=== PATIENT | female | born 1980 | race Caucasian/White ===

== ENCOUNTER 2024-10-16 13:02 | Emergency (ER) | payer OTHER ==
[~2024-10-16] VITALS: Ht 165.1 cm; Wt 115.7 kg
[~2024-10-16 13:02] MED LIST: ACET325; ACET325 PO; ACET500; ACET500 PO; ALBU90OI INH; ARIP10 PO; ASPI325; Alprazolam0.5 MG PO; BUPR150ER PO; BURN RELIEF W-127 GM TP; CEPH500 PO; CHLO25B PO; CHOL10002 PO; CIPR500 PO; CLIN300 PO; CLON.5; CRUTCH4 USE; CYCL10 PO; Crutch1 EACH MISC; Cymbalta20 MG PO; DIAZ5 PO; DOXY100 PO; DULO30 PO; FAMO20 PO; FAMO40 PO; FISH1000 PO; FLUR.03SO OD; FLUR100 PO; FLURBIPROFEN PO; FLUV50 PO; Flomax0.4 MG PO; GABA400 PO; GLIP2.5ER PO; HYDACE5 PO; HYDACE5325 PO; HYDR1TAB94 PO; HYOS.125 SL; IBUHYD PO; IBUP200; IBUP600 PO; IBUP800; IBUP800 PO; Indomethacin50 MG PO; KETO10 PO; LABE100 PO; LAVAP17G; LEVSOD200 PO; LISI5 PO; LORA2 PO; MEDR5 PO; METF500 PO; METO10 PO; MIRT15 PO; MIRTAZIPINE PO; MULVITMINE; MULVITMINE PO; Metformin HCl500 M1 PO; NAPR375; NAPR500 PO; NAPR550 PO; NITR100CA PO; NORT10 PO; NORT25 PO; Neurontin 100100 MG PO; OLAN2.5 PO; ONDA4 PO; ONDA4ODT MM; OXYACE5T PO; PERM5TC TOP; PREG75 PO; PROC10 PO; PROG100; PROM25 PO; Percocet 5-3251 EACH PO; QUET25 PO; RXCYCL10 PO; RXERYTOPTH OP; RXHYDACE PO; RXHYOS.125 PO; RXLORA1 PO; RXNAPNA550 PO; RXONDA4ODT MM; RXOXYACE PO; RXTRAM50 PO; SERT100 PO; SERT50 PO; SULTRIDS PO; SYNTHROID0.2 MG PO; Sprintec1 EACH PO; TAMS.4ER; TOPI25 PO; TRAM50; TRAM50 PO; Tizanidine HCl2 MG; Toradol10 MG PO; ULTRAM ER; ZIPR40 PO; ZIPR60 PO; Zofran Odt4 MG SL; Zofran Odt8 MG SL; [UNRECOGNIZED DRUG - CODE]; [UNRECOGNIZED DRUG - OTHER]; [UNRECOGNIZED DRUG - OTHER] TP; [UNRECOGNIZED DRUG - REMARK]
[2024-10-16 13:16] VITALS: BP 130/88
== END 2024-10-16 15:12 | disposition home or self-care (01) ==
LOC: ER 13:02
DX: R45.851 Suicidal ideations (principal); F10.90 Alcohol use, unspecified, uncomplicated; I10 Essential (primary) hypertension; E11.40 Type 2 diabetes mellitus with diabetic neuropathy, unspecified; F43.10 Post-traumatic stress disorder, unspecified; Z87.891 Personal history of nicotine dependence; Z79.899 Other long term (current) drug therapy; Z79.84 Long term (current) use of oral hypoglycemic drugs; Z88.0 Allergy status to penicillin; Z88.1 Allergy status to other antibiotic agents; Z88.8 Allergy status to other drugs, medicaments and biological substances
CPT/HCPCS: 99284

== ENCOUNTER → 2024-12-03 | Outpatient (CLI) | payer OTHER | LOC: LAB 17:26 → LAB SHORT 17:26 | DX: R30.0 Dysuria (principal) | CPT/HCPCS: 87086 ==

== ENCOUNTER 2025-02-02 10:00 | Emergency (ER) | payer OTHER ==
[~2025-02-02] VITALS: Ht 165.1 cm; Wt 81.7 kg
[2025-02-02 10:51] VITALS: BP 133/78
[2025-02-02] MEDS ORDERED: Ketorolac Tromethamine 30mg Vial IM ONE (10:55)
[2025-02-02] MEDS ORDERED: Lidocaine/Tetracaine/Epinephr 3 ML GEL SYRINGE TOP ONE (10:55)
[2025-02-02] MEDS ORDERED: Mupirocin22 GM TOP (13:08)
== END 2025-02-02 13:10 | disposition home or self-care (01) ==
LOC: ER 10:00
DX: S80.211A Abrasion, right knee, initial encounter (principal); S80.811A Abrasion, right lower leg, initial encounter; I10 Essential (primary) hypertension; F43.10 Post-traumatic stress disorder, unspecified; E11.40 Type 2 diabetes mellitus with diabetic neuropathy, unspecified; W01.0XXA Fall on same level from slipping, tripping and stumbling without subsequent striking against object, initial encounter; Z87.891 Personal history of nicotine dependence; Z79.84 Long term (current) use of oral hypoglycemic drugs; Z79.899 Other long term (current) drug therapy; Z88.0 Allergy status to penicillin; Z88.1 Allergy status to other antibiotic agents; Z88.8 Allergy status to other drugs, medicaments and biological substances
CPT/HCPCS: 96372; 99282-25; J1885

== ENCOUNTER 2025-05-08 12:29 | Emergency (ER) | payer OTHER ==
[~2025-05-08] VITALS: Ht 165.1 cm; Wt 117.9 kg
[~2025-05-08 12:29] MED LIST changes: +Mupirocin22 GM TOP
[2025-05-08 12:43] VITALS: BP 136/67
[2025-05-08] MEDS ORDERED: Ketorolac Tromethamine 15mg Vial IV ONE (12:45)
[2025-05-08] MEDS ORDERED: NS 1,000 ML IV SCH (12:45)
[2025-05-08 13:26] LABS: BASOPHILS ABSOLUTE AUTO 0.04 K/mm3 (0.00-0.23); BASOPHILS PERCENT AUTO 0 % (0-2); EOSINOPHILS ABSOLUTE AUTO 0.00 K/mm3 (0.00-0.68); EOSINOPHILS PERCENT AUTO 0 % (0-6); Hematocrit 41.2 % (33.0-51.0); Hemoglobin 13.8 g/dL (11.5-16.0); IMMATURE GRAN ABSOLUTE AUTO 0.06 K/mm3 (0.00-0.10); IMMATURE GRAN PERCENT AUTO 1 % (0-1); LYMPHOCYTES ABSOLUTE AUTO 0.89 K/mm3 (0.84-5.20); LYMPHOCYTES PERCENT AUTO 8 % (21-46); MONOCYTES ABSOLUTE AUTO 0.66 K/mm3 (0.16-1.47); MONOCYTES PERCENT AUTO 6 % (4-13); Mean Corpuscular HGB Conc 33.5 g/dL (31.5-36.5); Mean Corpuscular Volume 82 fL (80-100); NEUTROPHILS ABSOLUTE AUTO 9.10 K/mm3 (1.96-9.15); NEUTROPHILS PERCENT AUTO 85 % (41-73); NRBC ABSOLUTE 0.00 K/mm3 (0.00-0.02); NRBC Auto 0.0 /100 WBC (0.0-0.2); Platelet Count 299 K/mm3 (150-400); RDW Coefficient Variation 13.8 % (11.7-14.2); RDW Standard Deviation 41.0 fL (35.1-46.3)
[2025-05-08 13:37] LABS: Influenza A, PCR NEGATIVE (NEGATIVE); Influenza B, PCR NEGATIVE (NEGATIVE); Resp Syncytial Virus, PCR NEGATIVE (NEGATIVE); SARS-Cov-2 (COVID-19) PCR, MMC NEGATIVE (NEGATIVE)
[2025-05-08 13:44] LABS: Alanine Aminotransfer (ALT/SGP 41.0 U/L (12-78); Albumin, Blood 2.9 g/dL (3.4-5.0); Albumin/Globulin Ratio 0.7 (0.8-1.8); Anion Gap 11.0 mmol/L (3-11); Aspartate Aminotrans (AST/SGOT 19.0 U/L (12-37); Bilirubin, Total 0.6 mg/dL (0.1-1.0); Blood Urea Nitrogen 7.0 mg/dL (8-24); CO2, Blood 23.0 mmol/L (21-32); Calcium, Blood 8.5 mg/dL (8.5-10.1); Chloride, Blood 99.0 mmol/L (98-108); Creatinine, Blood 0.52 mg/dL (0.40-1.00); Globulin, Blood 4.1 g/dL (2.2-4.0); Glucose, Blood 163.0 mg/dL (70-99); Potassium, Blood 4.0 mmol/L (3.5-5.5); Sodium, Blood 129.0 mmol/L (136-145); Total Protein, Blood 7.0 g/dL (6.4-8.2)
[2025-05-08] MEDS ORDERED: AMOX500 PO (15:03)
[2025-05-08] MEDS ORDERED: ONDA4ODT MM (15:03)
== END 2025-05-08 14:13 | disposition left against medical advice (07) ==
LOC: ER 12:29
PROVIDERS: Physician Assistant
DX: J18.9 Pneumonia, unspecified organism (principal); I10 Essential (primary) hypertension; E11.40 Type 2 diabetes mellitus with diabetic neuropathy, unspecified; F43.10 Post-traumatic stress disorder, unspecified; Z87.891 Personal history of nicotine dependence; Z79.84 Long term (current) use of oral hypoglycemic drugs; Z79.899 Other long term (current) drug therapy; Z88.0 Allergy status to penicillin; Z88.1 Allergy status to other antibiotic agents; Z88.8 Allergy status to other drugs, medicaments and biological substances
CPT/HCPCS: 71046; 80053; 85025; 87637; 93005; 93010; 99283-25

== ENCOUNTER 2025-05-10 08:39 | Emergency (ER) | payer OTHER ==
[~2025-05-10] VITALS: Ht 167.6 cm; Wt 117.9 kg
[~2025-05-10 08:39] MED LIST changes: +AMOX500 PO
[2025-05-10] MEDS ORDERED: BUPR150ER PO (09:21)
[2025-05-10] MEDS ORDERED: INSULIN GL100 UNIT/2 SC (09:21)
[2025-05-10] MEDS ORDERED: INSULIN AS100 UNIT/8 (09:22)
[2025-05-10] MEDS ORDERED: Ketorolac Tromethamine 15mg Vial IV ONE (09:40)
[2025-05-10] MEDS ORDERED: Ondansetron HCl 2 MG / ML 2ML Vial IV ONE (09:40)
[2025-05-10] MEDS ORDERED: NS 1,000 ML IV SCH (09:40)
[2025-05-10 10:52] LABS: Source, Urine Clean Catch
[2025-05-10 10:55] LABS: BASOPHILS ABSOLUTE AUTO 0.03 K/mm3 (0.00-0.23); BASOPHILS PERCENT AUTO 0 % (0-2); EOSINOPHILS ABSOLUTE AUTO 0.01 K/mm3 (0.00-0.68); EOSINOPHILS PERCENT AUTO 0 % (0-6); Hematocrit 40.5 % (33.0-51.0); Hemoglobin 13.7 g/dL (11.5-16.0); IMMATURE GRAN ABSOLUTE AUTO 0.04 K/mm3 (0.00-0.10); IMMATURE GRAN PERCENT AUTO 1 % (0-1); LYMPHOCYTES ABSOLUTE AUTO 1.33 K/mm3 (0.84-5.20); LYMPHOCYTES PERCENT AUTO 17 % (21-46); MONOCYTES ABSOLUTE AUTO 0.82 K/mm3 (0.16-1.47); MONOCYTES PERCENT AUTO 11 % (4-13); Mean Corpuscular HGB Conc 33.8 g/dL (31.5-36.5); Mean Corpuscular Volume 81 fL (80-100); NEUTROPHILS ABSOLUTE AUTO 5.46 K/mm3 (1.96-9.15); NEUTROPHILS PERCENT AUTO 71 % (41-73); NRBC ABSOLUTE 0.00 K/mm3 (0.00-0.02); NRBC Auto 0.0 /100 WBC (0.0-0.2); Platelet Count 281 K/mm3 (150-400); RDW Coefficient Variation 13.7 % (11.7-14.2); RDW Standard Deviation 40.5 fL (35.1-46.3)
[2025-05-10 11:15] LABS: Bilirubin, Urine Neg (Neg); Color, Urine Yellow (P-Yellow); Glucose Qualitative, Urine Neg (Neg); Ketones, Urine 4+ (Neg); Leukocyte Esterase, Urine 1+ (Neg); Protein, Urine 2+ (Neg); Specific Gravity, Urine 1.015 (1.003-1.022); Urobilinogen, Urine 1+ (Normal)
[2025-05-10 11:16] LABS: Alanine Aminotransfer (ALT/SGP 34.0 U/L (12-78); Albumin, Blood 2.7 g/dL (3.4-5.0); Albumin/Globulin Ratio 0.6 (0.8-1.8); Anion Gap 11.0 mmol/L (3-11); Aspartate Aminotrans (AST/SGOT 20.0 U/L (12-37); Bilirubin, Total 0.5 mg/dL (0.1-1.0); Blood Urea Nitrogen 7.0 mg/dL (8-24); CO2, Blood 23.0 mmol/L (21-32); Calcium, Blood 8.5 mg/dL (8.5-10.1); Chloride, Blood 100.0 mmol/L (98-108); Creatinine, Blood 0.56 mg/dL (0.40-1.00); Globulin, Blood 4.3 g/dL (2.2-4.0); Glucose, Blood 144.0 mg/dL (70-99); Potassium, Blood 3.6 mmol/L (3.5-5.5); Sodium, Blood 130.0 mmol/L (136-145); Total Protein, Blood 7.0 g/dL (6.4-8.2)
[2025-05-10 11:46] LABS: Red Blood Cells, Urine 0-2 /hpf (0-2); White Blood Cells, Urine 0-2 /hpf (0-5)
[2025-05-10] MEDS ORDERED: CefTRIAXone Sodium 1,000 MG in NS 100 ML IV ONE (12:00)
[2025-05-10] MEDS ORDERED: Naloxone HCl 1MG / ML 2ML SYR IV ONE (14:40)
[2025-05-10 15:00] VITALS: BP 118/62
[2025-05-10] MEDS ORDERED: CEFP200 PO (15:06)
[2025-05-10] MEDS ORDERED: Zithromax250 MG PO (15:06)
== END 2025-05-10 15:14 | disposition home or self-care (01) ==
LOC: ER 08:39
DX: J15.9 Unspecified bacterial pneumonia (principal); E87.1 Hypo-osmolality and hyponatremia; E11.9 Type 2 diabetes mellitus without complications; Z87.891 Personal history of nicotine dependence; Z79.4 Long term (current) use of insulin; Z79.84 Long term (current) use of oral hypoglycemic drugs; Z79.890 Hormone replacement therapy; Z79.899 Other long term (current) drug therapy
CPT/HCPCS: 71045; 71260; 80053; 81001; 83605; 84484; 85025; 85379; 87086; 93005; 93010; 96361; 96365-59; 96367; 96375-59; 99285-25; J0456; J0696; J1885; J2405; J7030; J7050; Q9967